=== PATIENT | male | born 1935 | race Caucasian/White ===

== ENCOUNTER 2021-06-23 11:06 | Day surgery (SDC) | payer MEDICARE, OTHER ==
[2021-06-17 08:58] LABS: BASOPHILS % (AUTO) 1.3 % (0-1); EOSINOPHILS # (AUTO) 0.2 X10'3 (0-0.9); EOSINOPHILS % (AUTO) 5.9 % (0-6); HEMATOCRIT 35.1 % (42.0-52.0); HEMOGLOBIN 11.8 g/dl (14.0-17.9); LYMPHOCYTES # (AUTO) 1.1 X10'3 (1.1-4.8); LYMPHOCYTES % (AUTO) 29.8 % (21-51); MEAN CORPUSCULAR HEMOGLOBIN 32.7 PG (27.0-31.0); MEAN CORPUSCULAR HGB CONC 33.8 g/dL (33.0-36.5); MEAN CORPUSCULAR VOLUME 96.8 FL (78-98); MEAN PLATELET VOLUME 6.7 FL (7.4-10.4); MONOCYTES # (AUTO) 0.4 X10'3 (0-0.9); MONOCYTES % (AUTO) 11.7 % (2-12); NEUTROPHILS # (AUTO) 1.9 X10'3 (1.8-7.7); NEUTROPHILS % (AUTO) 51.3 % (42-75); PLATELET COUNT 195 X10'3 (140-440); RED BLOOD COUNT 3.62 X10'6 (4.70-6.10); RED CELL DISTRIBUTION WIDTH 13.5 % (11.5-14.5); WHITE BLOOD COUNT 3.7 X10'3 (4.5-11.0)
[2021-06-17 09:13] LABS: ALBUMIN 3.8 G/DL (3.4-5.0); ANION GAP 7 (8-16); BLOOD UREA NITROGEN 25 MG/DL (7-18); BUN/CREATININE RATIO 16.9 (5.4-32.0); CALCIUM 8.8 MG/DL (8.5-10.1); CHLORIDE 107 MMOL/L (99-107); CREATININE 1.48 MG/DL (0.60-1.10); GLUCOSE 133 MG/DL (70-104); POTASSIUM 4.9 MMOL/L (3.5-5.1); SODIUM 142 MMOL/L (135-145); eGFR 45 ML/MIN
[2021-06-17 09:25] LABS: APTT 39 SECONDS (22-32)
[2021-06-23] VITALS (7 sets, daily range): BP systolic 101–127; BP diastolic 60–85
[~2021-06-23] VITALS: Ht 170.2 cm; Wt 90.2 kg
[2021-06-23] MEDS ORDERED: FLEC100T PO (11:52)
[2021-06-23] MEDS ORDERED: LISI2.5T14 PO (11:52)
[2021-06-23] MEDS ORDERED: METF-900 PO (11:52)
[2021-06-23] MEDS ORDERED: LEVO75TA PO (11:52)
[2021-06-23] MEDS ORDERED: EZET10TA48 PO (11:52)
[2021-06-23] MEDS ORDERED: WARF-55 PO (11:52)
[2021-06-23] MEDS ORDERED: GLIM1TAB6 PO (11:52)
[2021-06-23] MEDS ORDERED: normal saline 1,000 ML IV SCH (12:15)
[2021-06-23] MEDS ORDERED: LORazepam 0.5 MG tablet PO PRN (12:15)
[2021-06-23] MEDS ORDERED: diphenhydrAMINE 25mg capsule PO PRN (12:15)
[2021-06-23] MEDS ORDERED: heparin 1,000unit/ml 10ml vial 10 ML ONE (13:19)
[2021-06-23] MEDS ORDERED: midazolam 1 mg/ML 2ml injection ONE (13:19)
[2021-06-23] MEDS ORDERED: fentaNYL/PF 50MCG/1 ML 2ML syringe ONE (13:19)
[2021-06-23] MEDS ORDERED: verapamil 2.5 mg/ml inj IV ONE (13:19)
[2021-06-23] MEDS ORDERED: nitroGLYCERIN-Tridil 50MG/D5W 250 ML IV ONE (13:20)
[2021-06-23] MEDS ORDERED: LIDOCAINE 1% w/preservative (10 MG/ML) inj. 10mL VIAL ONE (13:45)
[2021-06-23 15:28] LABS: ISTAT HGB ART 10.9 g/dl (14.0-18.0); ISTAT Hct ART 32 %PCV (42-52); ISTAT O2 SATURATION ARTERIAL 97 % (95-98); ISTAT SOURCE ART
[2021-06-23] MEDS ORDERED: HYDROcodone/acetaminophen 10/325mg tab PO PRN (16:10)
[2021-06-23] MEDS ORDERED: HYDROcodone/acetaminophen 5mg/325mg tablet PO PRN (16:10)
[2021-06-24 06:13] LABS: ISTAT Hct MIX 32 %PCV (42-52); ISTAT O2 SATURATION MIX VENOUS 69 % (60-80); ISTAT SOURCE VEN
== END 2021-06-23 17:30 | disposition home or self-care (01) ==
LOC: SSTAY O 11:06
PROVIDERS: ATTEND Internal Medicine Interventional Cardiology
DX: I35.0 Nonrheumatic aortic (valve) stenosis (principal); E11.9 Type 2 diabetes mellitus without complications; I10 Essential (primary) hypertension; I48.0 Paroxysmal atrial fibrillation; E03.9 Hypothyroidism, unspecified; E78.49 Other hyperlipidemia; G47.10 Hypersomnia, unspecified; Z79.899 Other long term (current) drug therapy; Z79.84 Long term (current) use of oral hypoglycemic drugs; Z79.01 Long term (current) use of anticoagulants
CPT/HCPCS: 36415; 80048; 82803; 82948; 85014; 85025; 85610; 85730; 93005; 93456; 99152; C1751; C1769; C1894; J1644; J2250; J3010; J3490; J7030; Q0163; 93460; 99153; A4620; A5120

== ENCOUNTER 2021-08-26 11:25 | Outpatient (CLI) | payer MEDICARE, OTHER ==
[~2021-08-26 11:25] MED LIST: EZET10TA48 PO; FLEC100T PO; GLIM1TAB6 PO; LEVO75TA PO; LISI2.5T14 PO; METF-900 PO; WARF-55 PO
[2021-08-26 12:05] LABS: BASOPHILS # (AUTO) 0.1 X10'3 (0-0.2); BASOPHILS % (AUTO) 1.3 % (0-1); EOSINOPHILS # (AUTO) 0.2 X10'3 (0-0.9); HEMATOCRIT 33.4 % (42.0-52.0); HEMOGLOBIN 11.4 g/dl (14.0-17.9); LYMPHOCYTES # (AUTO) 1.2 X10'3 (1.1-4.8); LYMPHOCYTES % (AUTO) 24.3 % (21-51); MEAN CORPUSCULAR HEMOGLOBIN 33.2 PG (27.0-31.0); MEAN CORPUSCULAR HGB CONC 34.1 g/dL (33.0-36.5); MEAN CORPUSCULAR VOLUME 97.3 FL (78-98); MEAN PLATELET VOLUME 6.7 FL (7.4-10.4); MONOCYTES # (AUTO) 0.6 X10'3 (0-0.9); MONOCYTES % (AUTO) 11.4 % (2-12); NEUTROPHILS # (AUTO) 2.9 X10'3 (1.8-7.7); PLATELET COUNT 210 X10'3 (140-440); RED BLOOD COUNT 3.43 X10'6 (4.70-6.10)
[2021-08-26 12:18] LABS: ALANINE AMINOTRANSFERASE 43 U/L (12-78); ALBUMIN 3.7 G/DL (3.4-5.0); ALKALINE PHOSPHATASE 79 IU/L (46-116); ANION GAP 9 (8-16); ASPARTATE AMINO TRANSFERASE 24 U/L (10-37); BILIRUBIN,TOTAL 0.5 MG/DL (0.1-1.0); BLOOD UREA NITROGEN 37 MG/DL (7-18); BUN/CREATININE RATIO 26.1 (5.4-32.0); CALCIUM 8.7 MG/DL (8.5-10.1); CHLORIDE 108 MMOL/L (99-107); CREATININE 1.42 MG/DL (0.60-1.10); GLUCOSE 144 MG/DL (70-104); POTASSIUM 4.7 MMOL/L (3.5-5.1); SODIUM 143 MMOL/L (135-145); TOTAL CARBON DIOXIDE 25.6 MMOL/L (24-32); TOTAL PROTEIN 7.4 G/DL (6.4-8.2); eGFR 47 ML/MIN
[2021-08-26 12:21] LABS: APTT 50 SECONDS (22-32)
[2021-08-26] MEDS ORDERED: iohexol 350 MG/1 ML 200ml bottle ONE (12:39)
== END 2021-08-26 23:59 | disposition home or self-care (01) ==
LOC: RAD 11:25
PROVIDERS: ATTEND Internal Medicine Cardiovascular Disease
DX: I08.0 Rheumatic disorders of both mitral and aortic valves (principal); I65.29 Occlusion and stenosis of unspecified carotid artery; J98.11 Atelectasis; N20.0 Calculus of kidney; M47.815 Spondylosis without myelopathy or radiculopathy, thoracolumbar region; I70.0 Atherosclerosis of aorta; N28.89 Other specified disorders of kidney and ureter; K42.9 Umbilical hernia without obstruction or gangrene; K57.30 Diverticulosis of large intestine without perforation or abscess without bleeding; Z98.0 Intestinal bypass and anastomosis status; Z90.49 Acquired absence of other specified parts of digestive tract
CPT/HCPCS: 36415; 71046; 71275; 74174; 80053; 85025; 85610; 85730; 94010; 94727; 94729; J3490; Q9967

== ENCOUNTER 2021-10-15 06:52 | Inpatient (IN) | payer MEDICARE, OTHER ==
[2021-10-08 10:46] LABS: CLARITY,URINE CLEAR (Clear); COLOR,URINE YELLOW (Yellow); GLUCOSE, URINE NEGATIVE (Neg); KETONES,URINE NEGATIVE (Neg); LEUKOCYTE ESTERASE ,URINE NEGATIVE (Neg); NITRITES, URINE NEGATIVE (Neg); OCCULT BLOOD,URINE TRACE-INTACT (Neg); PROTEIN,URINE NEGATIVE (Neg); UROBILINOGEN,URINE 0.2 E.U/dL (0.2-1.0)
[2021-10-08 10:48] LABS: UA COLLECTION TYPE NON-SPECIFIED
[2021-10-08 10:49] LABS: PRE OP PROTIME 23.2 SECONDS (9.0-12.0)
[2021-10-08 10:50] LABS: BASOPHILS # (AUTO) 0.1 X10'3 (0-0.2); BASOPHILS % (AUTO) 1.2 % (0-1); EOSINOPHILS # (AUTO) 0.1 X10'3 (0-0.9); EOSINOPHILS % (AUTO) 2.8 % (0-6); LYMPHOCYTES # (AUTO) 1.2 X10'3 (1.1-4.8); LYMPHOCYTES % (AUTO) 25.3 % (21-51); MEAN CORPUSCULAR HEMOGLOBIN 33.1 PG (27.0-31.0); MEAN CORPUSCULAR HGB CONC 33.8 g/dL (33.0-36.5); MEAN CORPUSCULAR VOLUME 98.1 FL (78-98); MEAN PLATELET VOLUME 6.9 FL (7.4-10.4); MONOCYTES # (AUTO) 0.5 X10'3 (0-0.9); MONOCYTES % (AUTO) 9.5 % (2-12); NEUTROPHILS # (AUTO) 2.9 X10'3 (1.8-7.7); NEUTROPHILS % (AUTO) 61.2 % (42-75); PRE OP HEMATOCRIT 34.3 % (42.0-52.0); PRE OP HEMOGLOBIN 11.6 g/dL (14.0-17.9); PRE OP PLATELET COUNT 223 X10'3 (140-440); RED BLOOD COUNT 3.49 X10'6 (4.70-6.10); RED CELL DISTRIBUTION WIDTH 13.7 % (11.5-14.5)
[2021-10-08 10:51] LABS: SQUAMOUS EPITHELIAL CELL,UR FEW /LPF (FEW)
[2021-10-08 10:52] LABS: BACTERIA,URINE NONE SEEN /HPF (Neg); RBC,URINE 0-2 /HPF (0-2); WBC,URINE 0-4 /HPF (0-4)
[2021-10-08 10:54] LABS: PRE OP INR 2.4 INR
[2021-10-08 11:03] LABS: ALBUMIN 3.9 G/DL (3.4-5.0); ALKALINE PHOSPHATASE 78 IU/L (46-116); BLOOD UREA NITROGEN 44 MG/DL (7-18); BUN/CREATININE RATIO 27.5 (5.4-32.0); CALCIUM 9.4 MG/DL (8.5-10.1); CHLORIDE 105 MMOL/L (99-107); PRE OP ALT 35 U/L (30-65); PRE OP ANION GAP 12 (8-16); PRE OP AST 18 U/L (10-37); PRE OP BILIRUB, TOTAL 0.5 MG/DL (0.0-1.0); PRE OP GLUCOSE 182 MG/DL (70-104); PRE OP POTASSIUM 4.9 MMOL/L (3.4-5.1); PRE OP SODIUM 143 MMOL/L (135-145); TOTAL CARBON DIOXIDE 26.1 MMOL/L (24-32); TOTAL PROTEIN 7.8 G/DL (6.4-8.2); eGFR 41 ML/MIN
[2021-10-08 11:07] LABS: HEMOGLOBIN A1C 6.9 % (4.5-6.2)
[2021-10-15] VITALS (22 sets, daily range): BP systolic 67–195; BP diastolic 41–90
[~2021-10-15] VITALS: Ht 170.2 cm; Wt 87.1 kg
[~2021-10-15 06:52] MED LIST changes: +aspirin 325mg tablet PO ONE; +ceFAZolin inj. 2,000 MG in dextrose 5%-water 100 ML IV ONE; +famotidine 20mg tablet PO ONE; +nitroPRUSSIDE (NIPRIDE) (200MCG/ML) 100ML Drip IV SCH; +ondansetron/PF 4mg/2ml inj IV PRN; +phenylephrine inj 50 MG in normal saline 250ml IV solN IV SCH; +protamine sulfate 10mg/ml inj. ONE; +ringers solution, lacted 1,000 ML IV SCH; +vancomycin 1,500 MG in NS 300ml IV soln IV ONE
[2021-10-15 07:59] LABS: APTT 35 SECONDS (22-32)
[2021-10-15] MEDS ORDERED: iohexol 350MG/ML 100ml bottle IV ONE (08:58)
[2021-10-15] MEDS ORDERED: heparin 1,000 UNITS/NS 500ml 1,500 ML ONE (08:59)
[2021-10-15] MEDS ORDERED: LIDOcaine 1% 30ml preserv. free vial ONE (09:06)
[2021-10-15] MEDS ORDERED: fentaNYL/PF 50MCG/1 ML 2ML syringe ONE (09:14)
[2021-10-15] MEDS ORDERED: midazolam 1 mg/ML 2ml injection ONE (09:15)
[2021-10-15] MEDS ORDERED: propofol inj 20 ML IV ONE (10:19)
[2021-10-15] MEDS ORDERED: heparin 1,000unit/ml 10ml vial 10 ML ONE (10:19)
[2021-10-15] MEDS ORDERED: glucagon, human recombinant 1mg kit SUBCUT PRN (10:20)
[2021-10-15] MEDS ORDERED: MESSAGE TO PHARMACY PO ONE (10:20)
[2021-10-15] MEDS ORDERED: insulin Lispro (HumaLOG) vial - multi-dose SQ SCH (10:20)
[2021-10-15] MEDS ORDERED: insulin regular, human U-100 3ml vial - multi-dose SQ SCH (10:20)
[2021-10-15] MEDS ORDERED: proCHLORperazine 10 MG/2 ml inj IV PRN (10:20)
[2021-10-15] MEDS ORDERED: labetalol 20mg/4ml (5mg/ml) syringe IV PRN (10:20)
[2021-10-15] MEDS ORDERED: pantoprazole 40mg Tablet.DR PO PRN (10:20)
[2021-10-15] MEDS ORDERED: acetaminophen 325mg tablet PO PRN (10:20)
[2021-10-15] MEDS ORDERED: dextrose 50%-water 50ml dispensing syringe IV PRN ×2 (10:20)
[2021-10-15] MEDS ORDERED: ALPRAZolam 0.25mg tablet PO PRN (10:20)
[2021-10-15] MEDS ORDERED: ondansetron/PF 4mg/2ml inj IV PRN (10:20)
[2021-10-15] MEDS ORDERED: hydrALAZINE 20mg/ml inj. IV PRN (10:20)
[2021-10-15] MEDS ORDERED: DEXTROSE 15 GM of carb/4 tabs (each vial/BOTTLE has 4 tablets) PO PRN ×2 (10:20)
[2021-10-15] MEDS ORDERED: diphenhydrAMINE 25mg capsule PO PRN (10:20)
[2021-10-15] MEDS ORDERED: docusate sod 100mg capsule PO PRN (10:20)
--- NOTE | 2021-10-15 10:26 | NUR ---
received pt from manager labor delivery in stable condition, ronnie running at 0.1 mcg, turned off. nipride up but off. pt is sleepy but arousable, answers questions appropriately. bilateral groin sites are soft with dressings dry and intact.
--- NOTE | 2021-10-15 11:20 | NUR ---
Higinio CARLOS called reference pts heart rate, 12 lead ekg performed, pt attached to pacer pads
--- NOTE | 2021-10-15 11:44 | NUR ---
finger stick performed, 137
--- NOTE | 2021-10-15 11:59 | NUR ---
report called to Missy NAVARRETE. Dr. Melgoza and Daniela at bedside, per MD pts normal heart rate is in the 40's. verbally ordered to continue with pts transfer to PCU.
--- NOTE | 2021-10-15 12:28 | NUR ---
left radial arterial line removed and pressure held for 5 minutes, no active bleeding seen, coban dressing applied, pt instructed to notifiy nurse if he feels any bleeding on radial site or groins
[2021-10-15] MEDS: ceFAZolin 1GM/D5W- ADD-VANTAGE 50 ML IV SCH ×2 (16:01→23:23)
[2021-10-15] MEDS: normal saline 1000ml 1,000 ML IV SCH ×2 (16:06→20:20)
[2021-10-15] MEDS: sod chloride 0.9% 10ml flush syringe IV SCH ×2 (16:07→23:25)
--- NOTE | 2021-10-15 18:45 | NUR ---
Patient in room PCU 3023. I have received report from Missy NAVARRETE and had the opportunity to ask questions and assume patient care.
--- NOTE | 2021-10-15 18:48 | NUR ---
THE VS MACHINE AT PT'S BEDSIDE REPORTED A HEART RATE IN THE 30'S. THIS NURSE FELT A HEART RATE >40 WHEN PALPATED FOR 60 SEC.
[2021-10-15] MEDS: vancomycin/NS 1 GM ADD-VANTAGE 250 ML IV SCH (19:46)
[2021-10-15] MEDS ORDERED: insulin glargine (Lantus) pen - multi-dose SQ SCH (21:00)
[2021-10-16 06:00] VITALS: BP 109/47
--- NOTE | 2021-10-16 06:04 | NUR ---
Problems reprioritized. Patient report given, questions answered & plan of care reviewed with Missy NAVARRETE.
[2021-10-16 06:13] LABS: BASOPHILS # (AUTO) 0.1 X10'3 (0-0.2); BASOPHILS % (AUTO) 1.1 % (0-1); EOSINOPHILS # (AUTO) 0.1 X10'3 (0-0.9); EOSINOPHILS % (AUTO) 2.4 % (0-6); HEMATOCRIT 28.7 % (42.0-52.0); HEMOGLOBIN 9.7 g/dl (14.0-17.9); LYMPHOCYTES # (AUTO) 0.9 X10'3 (1.1-4.8); LYMPHOCYTES % (AUTO) 20.3 % (21-51); MEAN CORPUSCULAR HEMOGLOBIN 33.6 PG (27.0-31.0); MEAN CORPUSCULAR HGB CONC 33.7 g/dL (33.0-36.5); MEAN CORPUSCULAR VOLUME 99.7 FL (78-98); MEAN PLATELET VOLUME 7.1 FL (7.4-10.4); MONOCYTES # (AUTO) 0.6 X10'3 (0-0.9); MONOCYTES % (AUTO) 12.5 % (2-12); NEUTROPHILS % (AUTO) 63.7 % (42-75); PLATELET COUNT 139 X10'3 (140-440); RED BLOOD COUNT 2.88 X10'6 (4.70-6.10); RED CELL DISTRIBUTION WIDTH 13.5 % (11.5-14.5); WHITE BLOOD COUNT 4.6 X10'3 (4.5-11.0)
--- NOTE | 2021-10-16 06:21 | NUR ---
Patient in room PCU 3023. I have received report from ROSANNA ALBARRAN, and had the opportunity to ask questions and assume patient care.
[2021-10-16 06:50] LABS: ALANINE AMINOTRANSFERASE 96 U/L (12-78); ALBUMIN 3.1 G/DL (3.4-5.0); ALKALINE PHOSPHATASE 70 IU/L (46-116); ANION GAP 10 (8-16); ASPARTATE AMINO TRANSFERASE 58 U/L (10-37); BILIRUBIN,TOTAL 0.4 MG/DL (0.1-1.0); BLOOD UREA NITROGEN 35 MG/DL (7-18); BUN/CREATININE RATIO 20.8 (5.4-32.0); CHLORIDE 107 MMOL/L (99-107); CREATININE 1.68 MG/DL (0.60-1.10); GLUCOSE 151 MG/DL (70-104); POTASSIUM 4.5 MMOL/L (3.5-5.1); SODIUM 140 MMOL/L (135-145); TOTAL CARBON DIOXIDE 23.5 MMOL/L (24-32); TOTAL PROTEIN 6.1 G/DL (6.4-8.2); eGFR 39 ML/MIN
[2021-10-16] MEDS ORDERED: levoTHYROXINE 75mcg tablet PO SCH (07:00)
[2021-10-16] MEDS ORDERED: ezetimibe 10mg tablet PO SCH (08:00)
[2021-10-16] MEDS: sod chloride 0.9% 10ml flush syringe IV SCH (08:00)
[2021-10-16] MEDS ORDERED: flecainide 50mg tablet PO SCH (08:00)
[2021-10-16] MEDS ORDERED: lisinopril 2.5mg tablet PO SCH (08:00)
[2021-10-16] MEDS: ceFAZolin 1GM/D5W- ADD-VANTAGE 50 ML IV SCH (08:30)
[2021-10-16] MEDS ORDERED: ASPI-1265 PO (09:21)
[2021-10-16] MEDS: vancomycin/NS 1 GM ADD-VANTAGE 250 ML IV SCH (09:42)
[2021-10-16 11:00] VITALS: BP_SYST 115; BP_SYST 150; BP_DIAS 39; BP_DIAS 75
--- NOTE | 2021-10-16 13:06 | NUR ---
PT STABLE FOR DISCHARGE PER MD. BELONGINGS RETURNED TO PT. DISCHARGE AND FOLLOW UP INSTRUCTIONS REVIEWED WITH PT. APPROPRIATE PAPERWORK SIGNED. PIV REMOVED WITH TIP INTACT. PT DISCHARGED TO HOME. PT WAS TRANSFERRED TO A PRIVATE VEHICLE BY HOSPITAL STAFF.
[2021-10-16] MEDS ORDERED: warfarin 7.5mg tablet PO SCH (21:00)
== END 2021-10-16 13:03 | disposition home or self-care (01) | DRG 267 ==
LOC: PAS IN 06:52 → PCU 3S 12:59
PROVIDERS: ADMIT Internal Medicine Cardiovascular Disease; ATTEND Internal Medicine Cardiovascular Disease
PROC: B41D1ZZ Fluoroscopy of Aorta and Bilateral Lower Extremity Arteries using Low Osmolar Contrast (ICD-10-PCS; 2021-10-15)
PROC: 5A09357 Assistance with Respiratory Ventilation, Less than 24 Consecutive Hours, Continuous Positive Airway Pressure (ICD-10-PCS; 2021-10-15)
PROC: 02RF38Z Replacement of Aortic Valve with Zooplastic Tissue, Percutaneous Approach (ICD-10-PCS; principal; 2021-10-15 09:12)
DX: I35.0 Nonrheumatic aortic (valve) stenosis (principal); Z00.6 Encounter for examination for normal comparison and control in clinical research program; E11.9 Type 2 diabetes mellitus without complications; E78.5 Hyperlipidemia, unspecified; I10 Essential (primary) hypertension; I48.0 Paroxysmal atrial fibrillation; R00.1 Bradycardia, unspecified
CPT/HCPCS: 33361; 36415; 71045; 71046; 76937; 80053; 81001; 82948; 83036; 83735; 83880; 84443; 85025; 85347; 85610; 85730; 86885; 86900; 86901; 86920; 87081; 87811; 93005; 93308; A4618; A6258; A6449; C1756; C1760; C1769; C1894; G0378; J0690; J1644; J1815; J2250; J2370; J2704; J2720; J3010; J3370; J3490; J7030; J7040; J7050; J7060; J7120; P9016; Q9967

== ENCOUNTER 2022-08-30 07:02 | Emergency (ER) | payer MEDICARE, OTHER ==
[~2022-08-30] VITALS: Ht 167.6 cm; Wt 83.6 kg
[~2022-08-30 07:02] MED LIST changes: -aspirin 325mg tablet PO ONE; -ceFAZolin inj. 2,000 MG in dextrose 5%-water 100 ML IV ONE; -famotidine 20mg tablet PO ONE; -nitroPRUSSIDE (NIPRIDE) (200MCG/ML) 100ML Drip IV SCH; -ondansetron/PF 4mg/2ml inj IV PRN; -phenylephrine inj 50 MG in normal saline 250ml IV solN IV SCH; -protamine sulfate 10mg/ml inj. ONE; -ringers solution, lacted 1,000 ML IV SCH; -vancomycin 1,500 MG in NS 300ml IV soln IV ONE
[2022-08-30] MEDS ORDERED: normal saline 1000ml 1,000 ML IV ONE ×2 (07:55→09:45)
--- NOTE | 2022-08-30 08:27 | NUR ---
PT TAKEN TO CT
[2022-08-30 09:14] LABS: BASOPHILS # (AUTO) 0.1 X10'3 (0-0.2); EOSINOPHILS # (AUTO) 1.2 X10'3 (0-0.9); EOSINOPHILS % (AUTO) 19.1 % (0-6); HEMATOCRIT 31.3 % (42.0-52.0); HEMOGLOBIN 10.5 g/dl (14.0-17.9); LYMPHOCYTES # (AUTO) 1.5 X10'3 (1.1-4.8); MEAN CORPUSCULAR HEMOGLOBIN 32.9 PG (27.0-31.0); MEAN CORPUSCULAR HGB CONC 33.5 g/dL (33.0-36.5); MEAN CORPUSCULAR VOLUME 98.1 FL (78-98); MEAN PLATELET VOLUME 7.5 FL (7.4-10.4); MONOCYTES # (AUTO) 0.6 X10'3 (0-0.9); NEUTROPHILS % (AUTO) 46.9 % (42-75); PLATELET COUNT 157 X10'3 (140-440); RED BLOOD COUNT 3.19 X10'6 (4.70-6.10); RED CELL DISTRIBUTION WIDTH 14.4 % (11.5-14.5); WHITE BLOOD COUNT 6.4 X10'3 (4.5-11.0)
[2022-08-30 09:36] LABS: ALANINE AMINOTRANSFERASE 25 U/L (12-78); ALBUMIN 3.3 G/DL (3.4-5.0); ALBUMIN/GLOBULIN RATIO 0.8 (1.1-1.5); ALKALINE PHOSPHATASE 101 IU/L (46-116); ANION GAP 13 (8-16); ASPARTATE AMINO TRANSFERASE 20 U/L (10-37); BILIRUBIN,TOTAL 0.5 MG/DL (0.1-1.0); BLOOD UREA NITROGEN 49 MG/DL (7-18); BUN/CREATININE RATIO 28.2 (10.0-20.0); CALCIUM 8.8 MG/DL (8.5-10.1); CHLORIDE 107 MMOL/L (99-107); CREATININE 1.74 MG/DL (0.60-1.10); GLUCOSE 171 MG/DL (70-104); POTASSIUM 4.4 MMOL/L (3.5-5.1); SODIUM 142 MMOL/L (135-145); TOTAL CARBON DIOXIDE 22.2 MMOL/L (24-32); TOTAL PROTEIN 7.4 G/DL (6.4-8.2); eGFR 37 ML/MIN
[2022-08-30 09:47] LABS: MAGNESIUM 2.3 MG/DL (1.5-2.4)
--- NOTE | 2022-08-30 10:01 | NUR ---
RN CK PT BG AND IT WAS 150. RN NOTIFIED DR UPTON. PER DR UPTON RN JUNE ORD CARB CONTROLLED BREAKFAST PER PT REQ.
--- NOTE | 2022-08-30 10:49 | NUR ---
PT HAS F/U APPT AT [facility] WITH MD DUMONT, THIS COMING TUESDAY (09/01).
--- NOTE | 2022-08-30 12:12 | NUR ---
MRI FORM COMPLETED AND FAXED TO [facility]. DR UPTON NOTIFIED TO CALL MIKEY FROM [facility] PER MIKEY VERMA.
--- NOTE | 2022-08-30 13:25 | NUR ---
PT TAKEN TO [facility]
--- NOTE | 2022-08-30 17:58 | NUR ---
RADIOLOGY CONTACTED FOR MRI IMAGES
[2022-08-30 18:00] VITALS: BP 152/64; PULSE 44; O2SAT 96
[2022-08-30] MEDS ORDERED: HYDR-3973 PO (18:33)
[2022-08-30] MEDS ORDERED: naproxen 500mg tablet PO ONE (18:35)
[2022-08-30] MEDS ORDERED: HYDROcodone/acetaminophen 5mg/325mg tablet PO ONE (18:35)
[2022-08-30 18:36] VITALS: RESP 16
[2022-08-30 18:52] VITALS: TEMP 98
[2022-08-30] MEDS ORDERED: GADOTERATE MEGLUMINE 7.5 MMOL/15 ML VIAL IV ONE (18:59)
== END 2022-08-30 18:59 | disposition home or self-care (01) ==
LOC: ER 07:03
DX: R55 Syncope and collapse (principal); E86.0 Dehydration; M54.50 Low back pain, unspecified; C72.0 Malignant neoplasm of spinal cord; E11.22 Type 2 diabetes mellitus with diabetic chronic kidney disease; N18.9 Chronic kidney disease, unspecified; E03.9 Hypothyroidism, unspecified; Z79.899 Other long term (current) drug therapy
CPT/HCPCS: 36415; 70450; 71045; 72125; 72156; 72157; 72158; 80053; 82948; 83735; 83880; 84153; 84484; 85025; 93005; 96360; 99285; A9575; J7030